=== PATIENT | female | born 1980 | race Caucasian/White ===

== ENCOUNTER 2024-12-31 14:07 | Inpatient (IN) | payer SELFPAY ==
[2024-12-31 15:36] VITALS: BP 137/91; PULSE 84; RESP 16; TEMP 36.9; O2SAT 100
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
--- NOTE | 2024-12-31 17:38 | PC.NURSE ---
Pt signed a 3 day on 12/31, up on Wednesday 01/03
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
[2024-12-31 20:00] VITALS: BP 130/84; PULSE 94; RESP 16; TEMP 36.8; O2SAT 99
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
[2024-12-31] MEDS: hydrOXYzine HCL 25 MG TABLET PO (21:04)
[2024-12-31 21:21] VITALS: BP 130/84
[2024-12-31] MEDS: Prazosin HCL 1 MG CAPSULE PO (21:21)
[2024-12-31] MEDS: Acetaminophen 325 MG TABLET 650 MG PO (21:23)
[2024-12-31 23:00] VITALS: BP 75/44; PULSE 90; RESP 16; TEMP 37.3; O2SAT 100
--- NOTE | 2024-12-31 23:06 | PM.EVENT ---
Event Note Date of Service: 01/01/25 Event Note: Rapid response was called as patient with dizziness while she was walking in the hallway. Did not lose consciousness. Blood pressure found to be low with normal oxygen saturation and normal POC. Hypotension due to prazosin which is a new med for her. Will discontinue. Will resuscitate with IV crystalloids and closely monitor blood pressure. Also obtaining troponin and EKG. Patient is awake, alert and answering questions appropriately at the time of my evaluation. Time Spent With Patient Time: Total time managing care of this patient today ____ minutes.
[2024-12-31] MEDS: Lactated Ringers 1,000 ML 999 ML IV (23:19)
[2024-12-31 23:29] LABS: Glucose, Whole Blood 110 mg/dL (60-115)
[2024-12-31 23:51] LABS: Troponin-I High Sensitivity < 2.7 ng/L (<3.5-17.0)
[2025-01-01] MEDS: Albumin Human 25 % 100 ML 133.33 ML IV (00:35)
[2025-01-01 01:00] VITALS: BP 107/56; PULSE 102; RESP 16; TEMP 37; O2SAT 100
[2025-01-01] MEDS: Omeprazole 20 MG CAPSULE.DR PO (06:53)
[2025-01-01] MEDS: Ondansetron ODT 4 MG TAB.RAPDIS TRANSLINGU ×3 (06:57→21:36)
--- NOTE | 2025-01-01 07:01 | PC.NURSE ---
Around 2300, pt approached nurses station reporting dizziness, feeling faint, and appeared pale. Rapid response was called. VS at this time were 75/44, HR 90, O2 Sat 100. BG 110. Hypotension caused by Prazosin, a newly prescribed medication. Pt was educated on Prazosin use and side effects. Pt insited on trying it to help with nightmares she's reportedly been having lately. This was pt's 1st time taking Prazosin. Dr. De Paz assessed pt and ordered EKG, Troponin, and monitor BP. LR 1000ml administered. 1 bag of 100ml Albumin administered, refused second bag stating she did not need any more fluids and wanted to sleep. Nursing pilot supervisor and provider notified. Troponin indicated 2.7 and EKG with NSR.
[2025-01-01 07:52] VITALS: BP 119/78; PULSE 101; RESP 16; TEMP 36.8; O2SAT 100
[2025-01-01 07:54] LABS: MANUAL DIFF FLAG NO
[2025-01-01 08:10] LABS: Estimated Average Glucose 120 mg/dL; Hemoglobin A1C 103.8253 umol/L; Hemoglobin A1c % 5.8 % (<6.0); Total Hemoglobin (HGBA1C) 2574.4336 umol/L
[2025-01-01 08:11] LABS: Basophils Percent Auto 0.5 % (0-2); Eosinophils Absolute Auto 0.1 X10*3/uL (0.0-0.4); Eosinophils Percent Auto 0.6 % (0-4); Hematocrit 32.2 % (37.0-47.0); Hemoglobin 9.7 g/dl (12.0-16.0); Imm Gran Abs Auto 0.02 X10*3/uL (0.00-0.03); Imm Gran Pct Auto 0.2 % (0.0-0.4); Lymphocytes Absolute Auto 1.9 X10*3/uL (1.2-4.9); Lymphocytes Percent Auto 23.9 % (20-40); Mean Corpuscular HGB Conc 30.1 g/dl (31.0-35.0); Mean Corpuscular Hemoglobin 23.5 pg (27.0-33.0); Mean Platelet Volume 8.9 fL (9.4-12.3); Monocytes Percent Auto 11.8 % (2-11); Neutrophils Absolute Auto 5.1 x10*3/uL (2.0-8.3); Platelet Count 402 X10*3/uL (160-400); Red Blood Count 4.13 X10*6/uL (4.20-5.50)
[2025-01-01 08:20] LABS: Alanine Aminotransferase 14 U/L (0-31); Albumin Level 4.6 g/dL (3.5-5.0); Alkaline Phosphatase 61 U/L (39-117); Aspartate Amino Transferase 16 U/L (5-31); Bilirubin Direct 0.3 mg/dL (0.0-0.5); Cholesterol 170 mg/dL (<200); HDL Cholesterol 50 mg/dL (>40); LDL Cholesterol Calculated 103 mg/dL (<100); Total Protein 7.1 g/dL (6.5-8.0); Triglycerides 86 mg/dL (<150)
[2025-01-01 08:30] LABS: Free T4 (Free Thyroxine) 1.06 ng/dL (0.71-1.85)
[2025-01-01 08:45] LABS: Folate 7.1 ng/mL (> or = 4.0); Vitamin B12 267 pg/mL (200-900)
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
[2025-01-01] MEDS: [UNRECOGNIZED DRUG - OTHER] 25 EACH PO ×2 (13:45→21:36)
[2025-01-01 19:14] VITALS: BP 170/86; PULSE 84; RESP 16; TEMP 36.9; O2SAT 100
[2025-01-01 21:28] VITALS: BP 119/80; PULSE 81
[2025-01-02 07:00] VITALS: BMI 22.5
[2025-01-02] MEDS: Omeprazole 20 MG CAPSULE.DR PO (07:25)
[2025-01-02 08:29] VITALS: BP 106/61; PULSE 97; TEMP 37.2; O2SAT 99
[2025-01-02] MEDS: [UNRECOGNIZED DRUG - OTHER] 25 EACH PO (09:48)
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
== END 2025-01-02 11:43 | disposition home or self-care (01) | DRG 882 ==
PROVIDERS: Student in an Organized Health Care Education/Training Program; Admitting Provider Psychiatry & Neurology Psychiatry; Visit Provider Psychiatry & Neurology Psychiatry
DX: F43.12 Post-traumatic stress disorder, chronic (principal); R45.851 Suicidal ideations; F79 Unspecified intellectual disabilities; I95.2 Hypotension due to drugs; T44.6X5A Adverse effect of alpha-adrenoreceptor antagonists, initial encounter; J43.9 Emphysema, unspecified; K21.9 Gastro-esophageal reflux disease without esophagitis; D64.9 Anemia, unspecified; F32.A Depression, unspecified; F41.9 Anxiety disorder, unspecified; F17.210 Nicotine dependence, cigarettes, uncomplicated; Z71.6 Tobacco abuse counseling; Z79.899 Other long term (current) drug therapy
CPT/HCPCS: 36415; 80061; 80076; 82607; 82746; 82947; 83036; 84439; 84443; 84484; 85025; J7120; P9047

== ENCOUNTER → 2024-12-31 14:07 | Outpatient (BNV) | payer SELFPAY | PROVIDERS: Admitting Provider Psychiatry & Neurology Psychiatry; Visit Provider Student in an Organized Health Care Education/Training Program | DX: D64.9 Anemia, unspecified (principal) | CPT/HCPCS: 99221; 99499 ==

== ENCOUNTER → 2024-12-31 14:07 | Outpatient (BNV) | payer SELFPAY | PROVIDERS: Admitting Provider Psychiatry & Neurology Psychiatry; Visit Provider Psychiatry & Neurology Psychiatry | DX: F79 Unspecified intellectual disabilities (principal); F43.11 Post-traumatic stress disorder, acute | CPT/HCPCS: 90792; 99231; 99239 ==